=== PATIENT | male | born 1960 | race Caucasian/White ===

== ENCOUNTER 2019-09-24 07:28 | Outpatient (CLI) | payer OTHER, SELFPAY ==
[2019-09-24 07:53] LABS: Hematocrit 45.2 % (42.0-52.0); Mean Corpuscular Hemoglobin 28.3 pg (26-34); Mean Corpuscular Volume 91.3 fl (80-100); Mean Platelet Volume 10.1 fl (7.4-10.4); Platelet Count Result 268 k/mm3 (150-375); Red Blood Count 4.95 M/mm3 (4.6-6.20); Red Cell Distribution Width 15.9 % (11.5-14.5)
[2019-09-24 08:04] LABS: Blood Urea Nitrogen 31 mg/dL (9-20); Calcium 9.7 mg/dL (8.4-10.2); Carbon Dioxide 38 mmol/L (22-30); Chloride 90 mmol/L (98-107); Estimated Glomerular Filt Rate 48; Glucose 186 mg/dL (75-110); Potassium 4.9 mmol/L (3.4-5.0); Sodium 138 mmol/L (137-145)
[2019-09-24 08:07] LABS: Hemoglobin A1C 8.9 % (<5.7)
== END 2019-09-24 07:29 | disposition home or self-care (01) ==
PROVIDERS: PCP Internal Medicine; Visit Provider Internal Medicine
DX: E11.65 Type 2 diabetes mellitus with hyperglycemia (principal); N18.3 Chronic kidney disease, stage 3 (moderate); I10 Essential (primary) hypertension
CPT/HCPCS: 36415; 80048; 83036; 85027

== ENCOUNTER 2019-10-20 06:33 | Outpatient (CLI) | payer OTHER, SELFPAY ==
[2019-10-20 07:28] LABS: Blood Urea Nitrogen 47 mg/dL (9-20); Calcium 9.4 mg/dL (8.4-10.2); Carbon Dioxide 37 mmol/L (22-30); Chloride 95 mmol/L (98-107); Estimated Glomerular Filt Rate 45; Glucose 151 mg/dL (75-110); Potassium 4.8 mmol/L (3.4-5.0); Sodium 138 mmol/L (137-145)
== END 2019-10-20 06:34 | disposition home or self-care (01) ==
PROVIDERS: PCP Internal Medicine; Visit Provider Internal Medicine
DX: E11.65 Type 2 diabetes mellitus with hyperglycemia (principal); I10 Essential (primary) hypertension
CPT/HCPCS: 36415; 80048

== ENCOUNTER 2019-11-19 09:22 | Outpatient (CLI) | payer OTHER, SELFPAY ==
[2019-11-19 10:11] LABS: Blood Urea Nitrogen 35 mg/dL (9-20); Calcium 9.5 mg/dL (8.4-10.2); Carbon Dioxide 35 mmol/L (22-30); Chloride 97 mmol/L (98-107); Estimated Glomerular Filt Rate 45; Glucose 145 mg/dL (75-110); Potassium 4.7 mmol/L (3.4-5.0); Sodium 138 mmol/L (137-145)
== END 2019-11-19 09:23 | disposition home or self-care (01) ==
PROVIDERS: PCP Internal Medicine; Visit Provider Internal Medicine
DX: E11.65 Type 2 diabetes mellitus with hyperglycemia (principal); I10 Essential (primary) hypertension
CPT/HCPCS: 36415; 80048

== ENCOUNTER 2019-12-29 08:02 | Outpatient (CLI) | payer OTHER, SELFPAY ==
[2019-12-29 08:27] LABS: Blood Urea Nitrogen 29 mg/dL (9-20); Calcium 9.4 mg/dL (8.4-10.2); Carbon Dioxide 37 mmol/L (22-30); Chloride 98 mmol/L (98-107); Estimated Glomerular Filt Rate 48; Glucose 160 mg/dL (75-110); Potassium 4.4 mmol/L (3.4-5.0); Sodium 139 mmol/L (137-145)
== END 2019-12-29 08:03 | disposition home or self-care (01) ==
PROVIDERS: PCP Internal Medicine; Visit Provider Internal Medicine
DX: E11.65 Type 2 diabetes mellitus with hyperglycemia (principal); I10 Essential (primary) hypertension; K21.9 Gastro-esophageal reflux disease without esophagitis
CPT/HCPCS: 36415; 80048

== ENCOUNTER 2020-02-11 08:06 | Outpatient (CLI) | payer OTHER, SELFPAY ==
[2020-02-11 08:50] LABS: Hemoglobin A1C 7.8 % (<5.7)
[2020-02-11 08:51] LABS: Alanine Aminotransferase 15 U/L (4-50); Alkaline Phosphatase 92 U/L (38-126); Aspartate Amino Transferase 20 U/L (17-59); Bilirubin,Total 0.3 mg/dL (0.2-1.3); Blood Urea Nitrogen 26 mg/dL (9-20); Calcium 9.4 mg/dL (8.4-10.2); Carbon Dioxide 37 mmol/L (22-30); Chloride 96 mmol/L (98-107); Cholesterol 158 mg/dL (0-200); Estimated Glomerular Filt Rate 48; Glucose 156 mg/dL (75-110); HDL Direct 22 mg/dL; Sodium 138 mmol/L (137-145); Triglycerides 200 mg/dL (<150)
[2020-02-11 08:57] LABS: LDL Cholesterol Direct 93 mg/dL
[2020-02-11 09:22] LABS: Potassium 4.5 mmol/L (3.4-5.0)
== END 2020-02-11 08:07 | disposition home or self-care (01) ==
LOC: ANHLAB 08:09
PROVIDERS: PCP Internal Medicine; Visit Provider Internal Medicine
DX: E11.65 Type 2 diabetes mellitus with hyperglycemia (principal); K21.9 Gastro-esophageal reflux disease without esophagitis; E78.9 Disorder of lipoprotein metabolism, unspecified; I10 Essential (primary) hypertension
CPT/HCPCS: 36415; 80053; 80061; 83036